=== PATIENT | male | born 1980 | race Caucasian/White ===

== ENCOUNTER → 2021-12-22 14:01 | Outpatient (CLI) | payer OTHER, SELFPAY ==
--- NOTE | 2021-12-22 14:03 | DI.RAD.S_ITS ---
PROCEDURE: XR LUMBAR SPINE MIN 4V INDICATIONS: BACK PAIN TECHNIQUE: 5 views of the lumbar spine were acquired, including bilateral oblique views. COMPARISON: None. FINDINGS: Bones: 5 nonrib-bearing vertebrae are present. There is normal bony alignment. No vertebral body compression fractures. No suspicious bony lesions. Soft tissues: Overlying bowel gas pattern is normal. No suspicious soft tissue calcifications. Oblique images: No pars defects. IMPRESSION: No acute abnormality of the lumbar spine. Dictated by: Arsalan Alford M.D. on 12/22/2021 at 18:48 Approved by: Arsalan Alford M.D. on 12/22/2021 at 18:49
== END ==
PROVIDERS: Referring Provider Physical Medicine & Rehabilitation; Visit Provider Physical Medicine & Rehabilitation
DX: M54.9 Dorsalgia, unspecified (principal)
CPT/HCPCS: 72110

== ENCOUNTER → 2022-01-06 15:04 | Outpatient (CLI) | payer OTHER, SELFPAY ==
--- NOTE | 2022-01-06 15:07 | DI.MRI.S_ITS ---
PROCEDURE: MR LUMBAR SPINE WO CON INDICATIONS: Left L4-5 radiculopathy TECHNIQUE: Noncontrast sagittal T1 spin echo and T2 fast echo, sagittal STIR, and T2 fast spin echo through the lumbar spine. In cases with scoliosis, additional coronal T2 fast spin echo may be performed. COMPARISON: [facility], , MRI L-SPINE W/O CONTRAST, 02/13/2017, 11:10. FINDINGS: Image quality: Excellent. Alignment and Curvature: There is normal bony alignment. Bone Marrow: Marrow is of normal overall signal. No acute vertebral body compression fractures. Spinal Cord: Conus medullaris terminates at the L1 level. Visualized cord demonstrates normal signal and size. Paraspinous Soft Tissues: No paravertebral masses. T12-L1: Normal appearance. L1-L2: Normal appearance. L2-L3: Normal appearance. L3-L4: Normal appearance. L4-L5: Disc space narrowing. Broad-based right subarticular disc protrusion fills the right lateral recess displacing the descending nerve root. Mild central stenosis. Moderate right and left foraminal stenosis. Associated bilateral facet hypertrophy present. L5-S1: Normal appearance. IMPRESSION: Right subarticular disc protrusion fills the right lateral recess and displaces the descending nerve root at L4-5 Approved by: Joseph Limon M.D. on 01/06/2022 at 17:30
== END ==
PROVIDERS: Referring Provider Physical Medicine & Rehabilitation; Visit Provider Physical Medicine & Rehabilitation
DX: M51.16 Intervertebral disc disorders with radiculopathy, lumbar region (principal)
CPT/HCPCS: 72148

== ENCOUNTER 2022-03-17 14:54 | Outpatient (CLI) | payer OTHER, SELFPAY ==
[2022-03-17] VITALS (8 sets, daily range): BP systolic 105–121; BP diastolic 66–72; PULSE 66–85; RESP 12–20; TEMP 36.1; O2SAT 95–99
--- NOTE | 2022-03-17 14:55 | DI.RAD.S_ITS ---
PROCEDURE: PAIN L/S TRANSFORAMINAL INJECT INDICATIONS: SPONDYLOSIS COMPARISON: None. FINDINGS: Fluoroscopic spot filming was performed to verify placement of spinal needles at the left L4-L5 neural foramen level(s), as labeled on the films. Appropriate location(s) of the needle tip(s) was confirmed by injection of iodinated contrast. IMPRESSION: Access needle tip at the left L4-L5 neural foramen for transforaminal epidural steroid injection. Dictated by: Roselia Echevarria MD, PhD on 03/17/2022 at 16:29 Approved by: Roselia Echevarria MD, PhD on 03/17/2022 at 16:29
[2022-03-17] MEDS: MIDAZOLAM 2 MG/2 ML VIAL IV (15:22)
[2022-03-17] MEDS: IOPAMIDOL 15 ML VIAL 3 ML INJ (15:27)
[2022-03-17] MEDS: BETAMETHASONE 30 MG/5 ML MDV 6 MG INJ (15:28)
[2022-03-17] MEDS: DEXAMETHASONE 10 MG/ML VIAL 20 MG INJ (15:28)
[2022-03-17] MEDS: BUPIVACAINE 0.25% (PF) VIAL 2 ML SUBCUT (15:29)
--- NOTE | 2022-03-17 15:37 | P.PCN_ITS ---
Date/Time/Diagnoses Date of procedure: 03/17/22 Time of procedure: 15:37 Pre-procedure diagnosis: 1. FORAMINAL STENOSIS WITH LE SYMPTOMS Post-procedure diagnosis: same Procedure Notes Procedure: 1. FLUOROSCOPICALLY GUIDED CONTRAST CONTROLLED TRANSFORAMINAL EPIDURAL STEROID INJECTION - LEFT L4/5 Indications: Jasen is referred for treatment of Foraminal Stenosis with Left LE Symptoms Physician: Medardo Gamboa Total Fluoroscopy time (seconds): 12 Total sedation minutes: 13 Complications: none Procedure in detail & Post-procedure care: FINDINGS Foraminal Nerve Root Compression secondary to disc disease and facet hypertrophy DESCRIPTION OF PROCEDURE Following review of allergy and review of potential side effects and complications, including, but not necessarily limited to, infection, allergic reaction, local tissue breakdown, stroke, temporary or permanent nerve injury, paralysis, and possible , the patient indicated that the patient understood and agreed to proceed. An informed consent document was signed by the patient, witnessed by a nurse, and placed in the patient's chart. Additionally, other treatment options including medications, modalities, and physical therapy were reviewed with the patient. After review of previous anaesthesic history and IV conscious sedation the patient was deemed safe to proceed with today?s procedure with IV conscious sedation as ASA class II designation. Safety time-out was performed to confirm patient ID, procedure to be performed and site of procedure. IV sedation was accomplished with a combination of 2mg of Versed administered by the RN after DO order, titrated to patient comfort during the course of the procedure while the patient remained responsive to all verbal commands In the prone position following sterile prep and drape of the lumbar region, the left L4/5 posterior neuroforamen was identified fluoroscopically. The skin was anesthetized via a 25-gauge 1.5-inch needle with 1% lidocaine solution. At this point, a 25-gauge 3.5-inch spinal needle was atraumatically introduced and advanced under fluoroscopic guidance through the posterior left L4/5 neuroforamen to approximately the anterior aspect of the canal. Depth was confirmed on lateral view. Following negative aspiration, injection of approximately 1.5 cc of Isovue 200 under live fluoroscopy in the AP view confirmed excellent flow along the nerve root, into the epidural space without vascular or intrathecal uptake observed Radiological data, including multiple fluoroscopic views of the lumbosacral spine, reveal a spinal needle at the left L4/5 posterior neuroforamen. Subsequent views show flow of contrast material flowing superiorly and inferiorly along the nerve root confirming epidural flow. Subsequently, a test dose of 1.5 cc of 1% lidocaine solution was administered and patient was observed for two minutes for signs or symptoms of complications, including abdominal pain, shortness of breath, bilateral upper or lower extremity weakness, nausea and vomiting, prior to steroid injection. At this point, a total of 3cc or 20mg of dexamethasone and 6mg of betamethasone was injected without incident. The procedure tolerated the procedure well without signs or symptoms of complications prior to transfer to the recovery area continued monitoring without incident. The patient was then transferred to the recovery area where they were observed for an appropriate time after the injection. The patient reported a VAS score of 7 prior to the procedure and a post- procedure VAS of 0. POST OP INSTRUCTIONS The patient was provided a Pain Log to continue to record their response to the target-specific procedure prior to follow-up visit with their referring physician. Additionally, specific post-injection care instructions and a contact number to our office were provided if concerns arise regarding possible complications associated with the procedure are suspected.
== END 2022-03-17 15:59 | disposition home or self-care (01) ==
PROVIDERS: Referring Provider Physical Medicine & Rehabilitation; Visit Provider Physical Medicine & Rehabilitation
DX: M48.061 Spinal stenosis, lumbar region without neurogenic claudication (principal); M51.16 Intervertebral disc disorders with radiculopathy, lumbar region
CPT/HCPCS: 64483; 99152; J0702; J1100; J2250; J3490

== ENCOUNTER 2022-09-22 13:56 | Outpatient (CLI) | payer OTHER, SELFPAY ==
[2022-09-22] VITALS (10 sets, daily range): BP systolic 108–145; BP diastolic 59–82; PULSE 67–82; RESP 12–20; TEMP 36.9; O2SAT 96–99
--- NOTE | 2022-09-22 13:57 | DI.RAD.S_ITS ---
PROCEDURE: PAIN L/S FACET INJ/BLK 1ST JESENIA COMPARISON: None. INDICATIONS: SPONDYLOSIS FINDINGS: Access needles at the bilateral L3, L4 and L5 pedicles for bilateral L3, L4 and L5 medial branch block. Injection of small amount of contrast material demonstrates needle tips are extra thecal. IMPRESSION: Access needles placed for bilateral L3, L4 and L5 medial branch blocks. Dictated by: Roselia Echevarria MD, PhD on 09/22/2022 at 16:25 Approved by: Roselia Echevarria MD, PhD on 09/22/2022 at 16:26
[2022-09-22] MEDS: BUPIVACAINE 0.5% (PF) 10 ML VIAL 2 ML INJ (15:50)
[2022-09-22] MEDS: LIDOCAINE 1% 20 ML 5 ML INJ (15:50)
[2022-09-22] MEDS: IOPAMIDOL 15 ML VIAL 3 ML INJ (15:51)
[2022-09-22] MEDS: MIDAZOLAM 2 MG/2 ML VIAL 3 MG IV (15:51)
--- NOTE | 2022-09-22 15:58 | P.PCN_ITS ---
Date/Time/Diagnoses Date of procedure: 09/22/22 Time of procedure: 15:59 Pre-procedure diagnosis: FACET ARTHROPATHY Post-procedure diagnosis: same Procedure Notes Procedure: 1. BILATERAL L3, L4 AND L5 DIAGNOSTIC MB BLOCKS Indications: Jasen is referred for treatment of Bilateral Axial LBP. Physician: Medardo Gamboa Total Fluoroscopy time (seconds): 14 Total sedation minutes: 18 Complications: none Procedure in detail & Post-procedure care: DESCRIPTION OF PROCEDURE Fluoroscopically guided, contrast-controlled bilateral L3, L4 AND L5 medial branch blocks with 0.5cc of 0.5% Marcaine. Following review of allergy and review of potential side effects and complications, including, but not necessarily limited to, infection, allergic reaction, local tissue breakdown, nerve injury, paralysis, stroke and possible , the patient indicated that the patient understood and agreed to proceed. An informed consent document was signed by the patient, witnessed by a nurse, and placed in the patient's chart. After review of previous anaesthesic history and IV conscious sedation the patient was deemed safe to proceed with today's procedure with IV conscious sedation as ASA class II designation. Safety time-out was performed to confirm patient ID, procedure to be performed and site of procedure. IV sedation was accomplished with a combination of 3mg of Versed was administered by the RN after DO order, titrated to patient comfort during the course of the procedure while the patient remained responsive to all verbal commands In the prone position, following sterile prep and drape of the lumbar region, the right L3, L4 and L5 anatomical location of the medial branch of the dorsal ramus was identified fluoroscopically. Subsequently an anesthetic skin wheal using 1% lidocaine solution was initiated at each of the anatomical spots. Subsequently then a 22-gauge 3.5-inch spinal needle was atraumatically introduced and advanced under fluoroscopic guidance at each of the corresponding sites at the right L3, L4 and L5 MB. After negative aspiration, 0.2cc of Isovue 200 was injected, confirming placement without vascular or intrathecal uptake. Subsequently then 0.5cc of 0.5% Marcaine solution was injected at each of the corresponding sites at the right L3, L4 and L5 medial branch locations. The identical procedure was replicated on the left. The patient tolerated the procedure well without signs or symptoms of complications. The patient tolerated the procedure well without signs or symptoms of complications prior to transfer to the recovery area continued monitoring without incident. Post-procedure, the patient was monitored initiating provocative activities to measure the amount of relief from block of the facetogenic pain. The patient reported a VAS of 7 prior to the procedure and a post-procedure VAS of 1. It has been a pleasure to assist in the diagnostic and therapeutic care of your patient. POST OP INSTRUCTIONS The patient was provided with a Pain Log to complete over the next several hours and subsequent days prior to the patient's follow up with the ordering physician. If the patient has logistics team leader relief to the solution applied, then they may be a candidate for medial branch rhizotomy. The patient is aware, was provided, once again, with a Pain Log and will follow up with the referring physician for review and clinical correlation
== END 2022-09-22 16:19 | disposition home or self-care (01) ==
PROVIDERS: Referring Provider Physical Medicine & Rehabilitation; Visit Provider Physical Medicine & Rehabilitation
DX: M47.816 Spondylosis without myelopathy or radiculopathy, lumbar region (principal)
CPT/HCPCS: 64493; 64494; 99152; J2250

== ENCOUNTER → 2024-01-17 12:52 | Outpatient (CLI) | payer OTHER, SELFPAY ==
--- NOTE | 2024-01-17 12:53 | DI.MRI.S_ITS ---
PROCEDURE: MR LUMBAR SPINE WO CON INDICATIONS: degeneration of intervertebral disc TECHNIQUE: Noncontrast sagittal T1 spin echo and T2 fast echo, sagittal STIR, and T2 fast spin echo through the lumbar spine. In cases with scoliosis, additional coronal T2 fast spin echo may be performed. COMPARISON: [facility], MR, MR LUMBAR SPINE WO CON, 01/06/2022, 15:29. FINDINGS: Image quality: Excellent Straightening of the lumbar spine. Grade 1 anterolisthesis of L4 on L5. Vertebral body height of the lumbar spine are well maintained. Multilevel disc bulge and disc desiccation. Marrow signal of the lumbar spine is normal for age. Conus terminates at the level of T12-L1, and is unremarkable. Right neural foraminal stenosis: Mild at L4-5. Left neural foraminal stenosis: Mild at L4-5. Central canal stenosis: T12-L1: No central canal stenosis. L1-L2: Mild disc bulge. No central canal stenosis. L2-3: No central canal stenosis. L3-4: Diffuse disc bulge with annular fissure. Superimposed paracentral disc extrusion with slight superior extension. Narrowing of the bilateral lateral recess, slightly improved on the right. Mild bilateral facet arthropathy with fluid within bilateral facet. No central canal stenosis. L5-S1: Mild bilateral facet arthropathy. No central canal stenosis. Visualized sacrum is intact. No abdominal aortic aneurysm. Small left renal cyst. IMPRESSION: 1. Multilevel degenerative changes of the lumbar spine, most pronounced at L4-5, where there is narrowing of bilateral lateral recess (slightly improved on the right), and mild bilateral neural foraminal stenosis (unchanged). 2. No central canal stenosis in the lumbar spine. Dictated by: Celeste Fried M.D. on 01/17/2024 at 15:50 Approved by: Celeste Fried M.D. on 01/17/2024 at 16:02
--- NOTE | 2024-01-17 12:53 | DI.MRI.S_ITS ---
PROCEDURE: MR CERVICAL SPINE WO CON INDICATIONS: degeneration of intervertebral disc TECHNIQUE: Noncontrast sagittal T1 spin echo and T2 fast spin echo, sagittal STIR, foraminal oblique sagittal T2 fast spin echo, and axial gradient echo or T2 fast spin echo through the cervical spine. COMPARISON: None. FINDINGS: Image quality: Excellent Straightening of the cervical spine. Mild anterolisthesis of C6 on C7, and C7 on T1. Vertebral body height of the cervical spine are well maintained. Multilevel disc desiccation disc bulge. Marrow signal of the cervical spine is normal for age. Cord signal: Unremarkable Right neural foraminal stenosis: Mild at C3-4, mild at C4-5, moderate at C5-6. Mild at C6-7. Left neural foraminal stenosis: Mild at C3-4, severe at C4-5. Moderate at C5-6. Axial images: C2-3: No central canal stenosis. C3-4: Mild bilateral facet arthropathy. Mild bilateral uncovertebral arthropathy. No central canal stenosis. C4-5: Posterior disc osteophyte complex. Uncovertebral arthropathy. Bilateral facet arthropathy. Mild central canal stenosis. C5-6: Posterior disc osteophyte complex. Bilateral uncovertebral and facet arthropathy. Mild central canal stenosis. C6-7: Posterior disc osteophyte complex. Mild uncovertebral arthropathy. No central canal stenosis. C7-T1: No central canal stenosis. Other soft tissue findings: Unremarkable IMPRESSION: 1. Multilevel degenerative changes of the cervical spine, with severe left neural foraminal stenosis at C4-5. 2. Additional multilevel mild central canal stenosis of the cervical spine. Dictated by: Celeste Fried M.D. on 01/17/2024 at 15:40 Approved by: Celeste Fried M.D. on 01/17/2024 at 15:49
== END ==
PROVIDERS: PCP Psychiatry & Neurology Forensic Psychiatry; Referring Provider Physical Medicine & Rehabilitation; Visit Provider Physical Medicine & Rehabilitation
DX: M50.30 Other cervical disc degeneration, unspecified cervical region (principal); M47.812 Spondylosis without myelopathy or radiculopathy, cervical region; M48.02 Spinal stenosis, cervical region; M51.360 Other intervertebral disc degeneration, lumbar region with discogenic back pain only; M47.816 Spondylosis without myelopathy or radiculopathy, lumbar region; M47.817 Spondylosis without myelopathy or radiculopathy, lumbosacral region; M48.061 Spinal stenosis, lumbar region without neurogenic claudication
CPT/HCPCS: 72141; 72148